=== PATIENT | female | born 1980 | race Caucasian/White ===

== ENCOUNTER 2018-06-14 20:40 | Outpatient (CLI) | payer OTHER ==
[~2018-06-14] VITALS: Ht 165.1 cm; Wt 95.0 kg
[2018-06-14 21:10] VITALS: BP 113/72; PULSE 83; RESP 16
[2018-06-14] MEDS ORDERED: CALC600T24 PO (21:12)
[2018-06-14] MEDS ORDERED: FERR134T PO (21:12)
[2018-06-14] MEDS ORDERED: PREN-19 PO (21:12)
--- NOTE | 2018-06-14 23:09 | PN ---
Triage Information Date/Time Reason for visit: Vag spotting / bleeding Weeks of Gestation Patient is a 37-year-old 4 para 1 at 21 weeks and 6 days of gestation with estimated date of delivery October 19, 2018 Patient presents with chief complaint of vaginal spotting/bleeding Patient denies uterine contractions, denies leaking fluid She reports positive movement Past obstetrical history significant for x1 /Para 4 para 1 Diabetes: none Hypertention: none Objective Vital Signs Date Temp Pulse Resp B/P (MAP) Pulse Ox O2 O2 Flow FiO2 Time Delivery Rate 06/14/18 98.3 83 16 113/72 Room Air 21:10 (86) Heart Rate: 140's Heart Rate Comments heart rate tracing appropriate for gestational age Contractions: None Results/Medications Results 24 hrs Laboratory Tests Test 06/14/18 20:40 Urine Color YELLOW Urine Clarity SLIGHTLY CLOUDY A Urine pH 7.0 Urine Specific [place] 1.013 Urine Ketones NEGATIVE Urine Nitrite NEGATIVE Urine Bilirubin NEGATIVE Urine Urobilinogen NEGATIVE Urine Leukocyte Esterase NEGATIVE Urine Microscopic RBC > 182 H Urine Microscopic WBC 5 Urine Squamous Epithelial Cells MODERATE Urine Calcium Oxalate Crystals FEW A Urine Mucus FEW A Urine Hemoglobin 3+ H Urine Glucose NEGATIVE Urine Total Protein 1+ H Imaging Results PROCEDURE: Obstetrical ultrasound. CLINICAL INDICATION: , evaluation. Pelvic pain. TECHNIQUE: Transabdominal sonographic images of the uterus obtained after first trimester, greater than 14 weeks gestation. Single intrauterine gestation present. Complete anatomic survey is not performed in this examina tion; if needed an additional dedicated examination can be performed for complete anatomic survey. COMPARISON: No prior studies are available for comparison. FINDINGS: Single intrauterine gestation. There is a variable/transverse presentation. Measurements were made in order to determine age. The results are as follows: BPD = 22 weeks 5 day(s) HC = 22 weeks 1 day(s) AC = 23 weeks 0 day(s) FL = 23 weeks 3 day(s) NICKY (cm) = not measured Heart rate = 150 beats per minute The placenta is posterior. No evidence of placental abruption. Cervix is not well visualized. Ovaries are not visualized. IMPRESSION: Single intrauterine gestation of approximately 22 weeks 6 days by ultrasound criteria. [place] estimated weight = 560 g; 94 percentile for gestational age of 21 weeks 6 days. No evidence of placental abruption. RPTAT: AADD .Marcos Ribeiro MD, MD Date Time Electronically viewed and signed by .Marcos Ribeiro MD, MD on 06/14/2018 22:32 .B/ CC: ANANT ESCOBAR MD [phone] PROCEDURE: Ultrasound soft tissues limited CLINICAL INDICATION: Vaginal bleeding. . Evaluate cervix TECHNIQUE: Real time sonographic imaging of the soft tissues involving the cervix is performed and a total of 13 static moore scale and Doppler images are sent to the PACS for review. COMPARISON: Ultrasound 06/14/2018 FINDINGS: The cervix is closed the length measuring 4.5 cm. There is a trace amount of echogenic material within the cervical canal suggesting bladder fluid. The placenta is posterior grade 0 without abruption or placenta previa. The living intrauterine gestation has a heart rate of 161 bpm and it is variable in presentation. RPTAT:HJJR IMPRESSION: 1. Trace amount of fluid and blood within the cervical canal with the closed cervix length measuring 4.5 cm. 2. Living intrauterine gestation with a posterior grade 0 placenta and no evidence of placenta previa or abruption. Physician Lisa Date Time Electronically viewed and signed by Physician Lisa on 06/15/2018 00:32 JR/ CC: ANANT ESCOBAR MD [id number] Disposition: Discharge Assessment/Plan Patient instructed to increase p.o. hydration Patient instructed to follow-up with her own VIDEO CONFERENCE SPECIALIST in 1-2 days ANANT ESCOBAR MD Jun 14, 2018 23:09
== END 2018-06-14 23:42 | disposition home or self-care (01) ==
LOC: L-D 20:40 → OBT 20:40
PROVIDERS: ATTEND Obstetrics & Gynecology Gynecology
DX: O46.92 Antepartum hemorrhage, unspecified, second trimester (principal); Z3A.21 21 weeks gestation of pregnancy; O26.892 Other specified pregnancy related conditions, second trimester; R10.2 Pelvic and perineal pain
CPT/HCPCS: 76815; 76817; 81001; Z7500; G0463

== ENCOUNTER 2018-08-07 09:13 | Inpatient (IN) | payer OTHER ==
[~2018-08-07] VITALS: Ht 167.6 cm; Wt 97.6 kg
[~2018-08-07 09:13] MED LIST: CALC600T24 PO; FERR134T PO; PREN-19 PO
[2018-08-07 09:19] VITALS: Ht 167.6 cm; Wt 97.6 kg
[2018-08-07] MEDS ORDERED: ACETAMINOPHEN 325 MG TAB PO PRN (14:00)
--- NOTE | 2018-08-07 15:55 | HP ---
Date/Time of Note Date/Time of Note DATE: 08/07/18 TIME: 15:36 OB - History Hx of Present Free Text/Dictation August 07, 2018 Last Menstrual Period: Aug 07, 2018 : 5 Para: 1 Other Concerns: 37-year-old G5, P1 with IUP at 29 weeks and 4 days and care at outside facility presents with complaint of spotting and light bleeding this morning. She denies any contractions or leaking of fluid or vaginal discharge or decreased movement. Patient denies any competition during course. Past Family/Social History * Past Medical, Surgical, Family and Obstetric Histories reviewed from chart. Blood Type: A+ GBS Status: Unknown OB Admission Exam Physical Exam HEENT: WNL Lungs: Clear Abdomen: WNL Extremities: Normal Membranes: Intact Accelerations: Accelerations Present Decelerations: No Decelerations Contractions on Admission: None Last 72 hourBlood Glucose PROCEDURE: Obstetrical ultrasound for biophysical profile CLINICAL INDICATION: Biophysical profile. . TECHNIQUE: Obstetrical ultrasound of the uterus for biophysical profile. Transabdominal views are obtained. COMPARISON: US 06/14/2018 FINDINGS: Single intrauterine gestation. Presentation: Cephalic. Placenta: Posterior No evidence of placental abruption. Lower margin of the placenta its relationship to the cervix is not clearly visualized. breathing movement = 2/2 tone = 2/2 motion = 2/2 NICKY = 2/2 NICKY = 11.0 cm heart rate: 137 beats per minute IMPRESSION: Single intrauterine gestation. Biophysical profile 11/20 Last 72 hours Lab Results CBC & BMP 08/07/18 09:56 OB Assessment/Plan Other Assessment: IUP at 29 weeks and 4 days light bleeding Rh+ No evidence of abruption however cannot rule out placenta previa based on the ultrasound finding No clear evidence of labor Patient will be admitted for observation and close monitoring Plan of care discussed with the patient BRIANA MCDONNELL MD Aug 07, 2018 15:55
[2018-08-08] MEDS: NACL 0.9% 3 ML SYG IV SCH ×3 (00:13→16:43)
[2018-08-08] MEDS: PRENATAL VITAMIN PO SCH (08:52)
--- NOTE | 2018-08-08 14:43 | QN ---
Documentation Comment 37y.o A3 at 29w5d present to triage with vaginal bleeding on 08/07/18 still have some spotting had sexual intercourse last week saturday, but not this week. had another episode of vaginal bleeding at 19weeks of gestation and observed at the hospital. U/s revealed marginal placenta previa with obscured cervix had x2 u.c but currently no cramping pain A IUP 29w5d vaginal bleeding ,marginal placenta previa P observe today RICK KULKARNI MD Aug 08, 2018 14:43
[2018-08-09] MEDS: NACL 0.9% 3 ML SYG IV SCH ×2 (04:05→20:35)
--- NOTE | 2018-08-09 11:01 | QN ---
Documentation Comment HD #2 Pt feels better in that she has no cramping today but did pass another single blood clot (medium-sized) this AM. VSS. Fundus NT. NST reactive without decels. Hgb 9.3 US done describes a posterior placenta and unable to assess the relationship to the cervix. P: Betamethasone x 2. Repeat US to assess cervical length and placental association with the cervix. Continue bedrest. MICHAEL RIVERA MD Aug 09, 2018 11:01
[2018-08-09] MEDS: PRENATAL VITAMIN PO SCH (12:20)
[2018-08-09] MEDS: FERROUS SULFATE (EC) 325 MG TAB PO SCH ×2 (12:20→20:35)
[2018-08-09] MEDS: BETAMET NA PHOS/AC(6 MG/ML) 2 ML INJ SYG IM SCH (12:20)
[2018-08-10] MEDS: PRENATAL VITAMIN PO SCH (08:27)
[2018-08-10] MEDS: FERROUS SULFATE (EC) 325 MG TAB PO SCH ×2 (08:27→21:09)
[2018-08-10] MEDS: BETAMET NA PHOS/AC(6 MG/ML) 2 ML INJ SYG IM SCH (11:46)
--- NOTE | 2018-08-10 13:00 | QN ---
Documentation Comment 29+wks GA vagina bleeding and Marginal placenta.No VB today No abdominal pain Vs stable Gen NAD Abd soft NT ND Genitalia No blood at perineum --->Close observation and monitoring DEANNA DSOUZA M.D. Aug 10, 2018 13:00
[2018-08-10] MEDS: NACL 0.9% 3 ML SYG IV SCH (13:50)
[2018-08-11] MEDS: PRENATAL VITAMIN PO SCH (08:54)
[2018-08-11] MEDS: FERROUS SULFATE (EC) 325 MG TAB PO SCH ×2 (08:54→20:53)
--- NOTE | 2018-08-11 13:46 | QN ---
Documentation Comment 29+wks GA NO vaginal bleeding No CTXs Vs stable Gen NAD Abd soft NT ND Genitalia No blood at perineum --->Discharge after BPP and CXL WNL --->precautions discussed --->Questions answered --->Follow up with provider DEANNA DSOUZA M.D. Aug 11, 2018 13:46
--- NOTE | 2018-08-11 13:47 | DS ---
Date/Time of Note Date/Time of Note DATE: 08/11/18 TIME: 13:46 Discharge Summary Admission/Discharge Info Admit Date/Time Aug 07, 2018 at 13:40 Discharge Date/Time 08/11/2018 Discharge Diagnosis labor Patient Condition: Good Hospital Course uneventful; Home Meds Reported Medications Calcium Carbonate* (Calcium Carbonate*) 600 MG Ca Tab, 600 MG PO DAILY, TAB 06/14/18 Ferrous Sulfate (Iron) 134 Mg Tablet, 134 MG PO DAILY, TAB 06/14/18 Vit #76/Iron,Carb/FA (Prenatabs Rx Tablet) 1 Each Tablet, 1 EACH PO DAILY, TAB 06/14/18 Primary Care Provider Not On Staff Doctor DEANNA DSOUZA M.D. Aug 11, 2018 13:47
--- NOTE | 2018-08-11 15:44 | PN ---
DATE: 08/11/2018 The patient was admitted secondary to some vaginal spotting. Her first ultrasound showed the placent a to be marginal previa. Second ultrasound showed the placenta to be fundal. She has no contraction s. She received betamethasone. She has not had any bleeding since the time of admission. She is cu rrently at 30 weeks and 1 day. My recommendation is to discharge the patient home with pelvic rest a nd please make an appointment for ultrasound with us within the next 2 weeks. Dictated By: ASAF BRYSON MD ST/NTS Conf#: [id number] DID#: [id number] CC: BRIANA MCDONNELL MD; OVIDIO MOSES MD;*End*
[2018-08-12] MEDS: FERROUS SULFATE (EC) 325 MG TAB PO SCH ×2 (09:37→21:19)
[2018-08-12] MEDS: PRENATAL VITAMIN PO SCH (09:37)
--- NOTE | 2018-08-12 16:34 | QN ---
Documentation Comment 29+wks GA NO vaginal bleeding No CTXs some variables on NST yesterday Vs stable Gen NAD Abd soft NT ND Genitalia No blood at perineum --->case D/w Dr. Arriaga and patient needs to be monitored longer DEANNA DSOUZA M.D. Aug 12, 2018 16:34
--- NOTE | 2018-08-13 00:48 | PN ---
DATE: 08/12/2018 ADDENDUM I received a phone call from ____ about 2 or 3 hours after my recommendation dictated on 08/11/19 19. The strip, at the moment for the past 10 minutes prior to his call, had some moderate variabilit y, no acceleration, so decision was made to keep the patient overnight. Overnight, overall, the baby is doing fine. However, there were some areas that are suspicious for spontaneous deceleration, ove rall reassuring. In that case, I do recommend in-house management until further recommendations. Dictated By: ASAF BRYSON MD ST/NTS Conf#: [id number] DID#: [id number]
[2018-08-13] MEDS: FERROUS SULFATE (EC) 325 MG TAB PO SCH ×2 (11:37→21:27)
[2018-08-13] MEDS: PRENATAL VITAMIN PO SCH (11:37)
--- NOTE | 2018-08-13 18:03 | PN ---
Date/Time of Note Date/Time of Note DATE: 08/13/18 TIME: 17:55 OB Subjective Subjective Subjective Date of admission: 08/07/2018 patient seen and examined. She states good movement. She denies nausea, vomiting, shortness of breath, chest pain, abdominal pain between contractions, headache, visual changes, vaginal bleeding or LOF. OB Objective Objective Objective General: Patient appears well, alert and oriented, NAD, appropriate mood and affect ABD: gravid, soft, non-tender. Back: No CVA tenderness (B/L) LE: Mild edema. No clubbing, cyanosis, edema, thigh or calf tenderness bilaterally FHT: 135 bpm, moderate variability with acceleration with 2 spontaneous deceleration Contractions: None OB Assessment/Plan Other plan: 37 year-old G 5 para 1-0-3-1 with SIUP at 30 weeks and 3 days admitted initially for vaginal bleeding. However in reviewing heart rate strip there is spontaneous FHR deceleration. She has no uterine contractions. Ultrasound on 08/11/2018 with NICKY is 17.2 and biophysical profile 8 out of 8. Continue in- house management for close heart rate monitoring she was seen by perinatologist. KARLIE WILKERSON August 13, 2018 18:03
[2018-08-14] MEDS: PRENATAL VITAMIN PO SCH (08:17)
[2018-08-14] MEDS: FERROUS SULFATE (EC) 325 MG TAB PO SCH (08:17)
--- NOTE | 2018-08-14 12:06 | PN ---
Date/Time of Note Date/Time of Note DATE: 08/14/18 TIME: 12:05 OB Subjective Subjective Subjective Denies any vaginal bleeding, uterine contractions decreased movement or any other complaints. Comfortable in the bed. Denies any bleeding. OB Objective Objective Objective Appearance: Alert and oriented x4 does not appear to be in any acute distress Abdomen: Soft, gravid, fundal height consider gestational age No tenderness, no rebound tenderness, no guarding no rigidity NST: Category 1 Extremities: No calf tenderness, no click no edema no cord palpable PROCEDURE: US OB. CLINICAL INDICATION: labor TECHNIQUE: Multiple sonographic images of the pelvis were obtained. The images were reviewed on a PACS workstation. COMPARISON: 08/07/2018 FINDINGS: There is a single live intrauterine . cardiac activity is identified at a rate of 144 beats per minute. presentation is breech. Placenta is posterior fundal grade 1 to II. Cervix is closed with a length of 4.5 cm Biophysical profile score is as follows: Breathing 2 Movements 2 Tone 2 Fluid volume 2 Amniotic fluid index = 17.12 cm Total biophysical profile score = 8/8 IMPRESSION: Biophysical profile score = 8/8 Breech position RPTAT: OB Assessment/Plan Other Assessment: Hospital day #8 Admitted for vaginal bleeding Status post 2 doses of steroids and was on magnesium Currently off of magnesium Stable. Asymptomatic. testing reassuring Repeat ultrasound showed no evidence of previa. Placenta was fundal. Patient stable for discharge home with a strict labor precautions kick count and follow-up with primary OB office within 24 to 48 hours after discharge from the hospital Pelvic rest advised the patient Precaution was given to immediately return to the hospital if she has any leaking, bleeding, contractions or any other concerns. All questions were answered to patient's best satisfaction. BRIANA MCDONNELL MD August 14, 2018 12:06
--- NOTE | 2018-08-14 12:11 | PD.PPDC ---
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 Provider Information Physician Information Joycelyn Sal MD Condition [id number] Patient Condition: Mhcaq3q Good Diet Fwbic0Xo Diet: Hofmh8t Resume Regular Diet Activity/Restrictions Ehwmf0Kk Activity: Ssezf8d Bedrest May be up to bathroom May Shower [id number] Restrictions: Mlwtv2m No Exercising No Lifting No Driving No Sexual Activity Nothing in the Vagina No [place] No Tampons, douche Follow-up Follow-up with Physician: 2, Day/Days Referral Comment: Commended to have a follow-up in 2 days after discharge from the hospital with [facility] office with a strict precaution if she has any bleeding, leaking contraction or any other concern immediately come back to the hospital. Patient verbalized understanding. Return to clinic for Comment: Return to triage if she has any bleeding, contractions leaking of fluid vaginal bleeding, or any other concern. Or decreased movement. BRIANA MCDONNELL MD August 14, 2018 12:11
== END 2018-08-14 14:38 | disposition home or self-care (01) | DRG 832 ==
LOC: OBT 09:13 → L-D 09:13 → OBT 13:58 → L-D 16:15 → PP1 08-08 15:03
PROVIDERS: ADMIT Obstetrics & Gynecology Obstetrics; ATTEND Obstetrics & Gynecology Obstetrics
DX: O46.93 Antepartum hemorrhage, unspecified, third trimester (principal); O47.03 False labor before 37 completed weeks of gestation, third trimester; O09.523 Supervision of elderly multigravida, third trimester; O76 Abnormality in fetal heart rate and rhythm complicating labor and delivery; Z3A.29 29 weeks gestation of pregnancy
CPT/HCPCS: 76816; 76817; 76818; 81001; 85025; 86850; 86900; 86901; G0463; J0702

== ENCOUNTER 2018-09-16 21:30 | Inpatient (IN) | payer OTHER ==
[~2018-09-16] VITALS: Ht 167.6 cm; Wt 100.8 kg
[2018-09-16 22:18] VITALS: Ht 167.6 cm; Wt 100.8 kg
[2018-09-16 22:19] VITALS: BP 110/72; PULSE 68; RESP 17
[2018-09-16] MEDS ORDERED: LACTATED RINGER'S 1,000 ML IV PRN (22:30)
--- NOTE | 2018-09-16 23:35 | HP ---
Date/Time of Note Date/Time of Note DATE: 09/16/18 TIME: 23:31 OB - History Hx of Present Chief Complaint: vaginal bleeding Estimated Due Date: Oct 19, 2018 : 4 Para: 1 Spontaneous : 2 Therapeutic : 0 Obstetrical Complications: None Medical Complications: None Past Family/Social History * PMHx unremarkable PSHx C/S FHx Non contributory GBS Status: Unknown OB Admission Exam Vital Signs Vital Signs Vital Signs Date Temp Pulse Resp B/P (MAP) Pulse Ox O2 O2 Flow FiO2 Time Delivery Rate 09/16/18 98.0 68 17 110/72 Room Air 22:19 (85) Physical Exam HEENT: WNL Heart: Rhythm Normal Lungs: Clear, Equal Abdomen: WNL Extremities: Normal Reflexes: Normal Cervical Dilatation: None Effacement: 50% Station: -1 Membranes: Intact Heart Rate: 120's Accelerations: Accelerations Present Decelerations: No Decelerations Varibility: Moderate Last 72 hours Lab Results CBC & BMP 09/16/18 22:45 OB Assessment/Plan Reason for admission: observation, vaginal bleeding Plan: Other Other plan: Admit IV hydration Monitor OVIDIO MOSES MD Sep 16, 2018 23:35
[2018-09-17] MEDS: LACTATED RINGER'S 1,000 ML IV SCH ×2 (01:38→16:49)
[2018-09-17] MEDS ORDERED: TERBUTALINE 1 MG/ML INJ SC ONE (11:00)
[2018-09-17] MEDS ORDERED: TERBUTALINE 1 ML ONE (11:06)
--- NOTE | 2018-09-17 23:10 | PN ---
Date/Time of Note Date/Time of Note DATE: 09/17/18 TIME: 23:05 OB Subjective Subjective Subjective Patient seen and examined. She states good movement. She denies nausea, vomiting, shortness of breath, chest pain, headache, visual changes, or LOF. She states since no further vaginal bleeding, only has some minimal spot when she wiped herself OB Objective Objective Objective General: Patient appears well, alert and oriented, NAD, appropriate mood and affect ABD: gravid, soft, non-tender. Back: No CVA tenderness (B/L) LE: Mild edema. No clubbing, cyanosis, edema, thigh or calf tenderness bilaterally FHT: 135 bpm , moderate variability with acceleration, no deceleration-category I Contractions: None 37 years old -0-2-1 with single intrauterine at 35 weeks and 3 days with third trimester vaginal - FHR: Reassuring. No sign of metabolic acidosis- Category I - Contractions: None - Continuous EFM, toco. - She has received betamethasone x2 and August 08 - Blood type is A positive - Cont current management KARLIE WILKERSON Sep 17, 2018 23:10
[2018-09-18] MEDS: LACTATED RINGER'S 1,000 ML IV SCH ×4 (01:04→23:57)
--- NOTE | 2018-09-19 00:35 | PD.PPDC ---
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
--- NOTE | 2018-09-19 00:38 | DS ---
Date/Time of Note Date/Time of Note DATE: 09/19/18 TIME: 00:36 Obstetrical Discharge Record Final Diagnosis Final Diagnosis: not delivered Other Final Diagnosis vaginal bleeding with PTL resolved Complications Labor Augmentation: No Induction: No Rupture of Membranes: No Condition on Discharge Physical Assessment Last Vitals: VSS afebrile Voiding: Yes Bowel Movement: Yes Breast: Other Fundus: Other ( no UC) Abdomen and Incision: Episiotomy: n/a Calf Tenderness: No Patient Condition: Stable RICK KULKARNI MD Sep 19, 2018 00:38
== END 2018-09-19 01:00 | disposition home or self-care (01) | DRG 833 ==
LOC: OBT 21:30 → L-D 21:31 → OBT 23:30 → L-D 23:30
PROVIDERS: ADMIT Obstetrics & Gynecology; ATTEND Obstetrics & Gynecology
DX: O46.93 Antepartum hemorrhage, unspecified, third trimester (principal); O09.523 Supervision of elderly multigravida, third trimester; Z3A.35 35 weeks gestation of pregnancy
CPT/HCPCS: 76815; 76818; 81001; 85025; 85610; 85730; 86850; 86900; 86901; G0463; J3105; J7120